=== PATIENT | female | born 1950 | race Caucasian/White ===

== ENCOUNTER → 2023-05-23 08:54 | Outpatient (REF) | payer MEDICARE, OTHER, SELFPAY | LOC: WDC 08:54 | PROVIDERS: ATTENDING PHYSICIAN Nurse Practitioner Family | DX: R92.2 Inconclusive mammogram (principal); R92.30 Dense breasts, unspecified | CPT/HCPCS: 76641 ==

== ENCOUNTER → 2024-03-27 11:42 | Outpatient (REF) | payer MEDICARE, OTHER, SELFPAY | LOC: WDC 11:42 | PROVIDERS: ATTENDING PHYSICIAN Obstetrics & Gynecology; FAMILY PHYSICIAN Family Medicine | DX: Z12.31 Encounter for screening mammogram for malignant neoplasm of breast (principal) | CPT/HCPCS: 77063; 77067 ==